=== PATIENT | male | born 1965 | race Caucasian/White ===

== ENCOUNTER 2024-12-28 05:45 | Emergency (ER) | payer BC, SELFPAY ==
[2024-12-28 05:48] VITALS: BP 178/100; PULSE 87; RESP 18; TEMP 36.8; O2SAT 98; BMI 33.7
[2024-12-28 05:52] VITALS: BP 178/100; PULSE 83; RESP 18; TEMP 36.8; O2SAT 98
--- NOTE | 2024-12-28 05:53 | RAD_ITS ---
PROCEDURE: KNEE 4 OR MORE VIEWS 12/28/2024 REASON FOR EXAM: PAIN, SWELLING TECHNIQUE: 4 view(s) of the right knee COMPARISON: None available FINDINGS: Appearance of a moderate joint effusion. No radiopaque foreign body identified. No periosteal reaction or osseous destruction seen. The joint spaces appear within limits. No fracture or dislocation. Ovoid calcific density at the medial joint line may represent sequela of previous MCL remote injury. Enthesophyte formation quadriceps side of the patella. RAD/Knee 4 or More Views IMPRESSION: Appearance of a moderate joint effusion. No radiopaque foreign body identified . No periosteal reaction or osseous destruction seen. Reading Location: [id number]
--- NOTE | 2024-12-28 05:55 | EX.ED.VISEXT ---
HPI History of Present Illness Chief Complaint: Bite Narrative Narrative: 59-year-old male past medical history of hypertension and gout, visiting from [place] as he is working up here in the area presents with pain and swelling of his right knee after being bit by something 2 days ago. He states it was Saturday morning, almost 48 hours ago, when he felt something bite the back of his right knee. He states he did not feel like a bee sting because that does not bother him. He denies any fevers or chills, but did state that the air conditioning in his hotel room was broken so he was somewhat sweaty all evening. No nausea or vomiting. There was a bruised area on the medial aspect of his posterior knee. He now states that his right knee has swollen up and he can flex and extend his knee, but it does feel stiff almost like gout. No change in color to his knee. ROS ROS ED ROS Narrative Review of systems positive for stiffness and swelling of right knee. Discoloration to right posterior medial knee. [place] like something bit him. No fevers or chills. No nausea or vomiting. No discoloration to the knee, or redness. [facility] Medical History Hypertension Gout Home Medications ?Medication ?Instructions ?Recorded ?Last Taken ?Type allopurinol 100 mg tablet 100 mg PO DAILY 12/28/24 Unknown History cephalexin 500 mg capsule 500 mg PO TID #21 caps 12/28/24 Unknown Rx lisinopril 20 mg tablet 20 mg PO DAILY 12/28/24 Unknown History Allergy/AdvReac Type Severity Reaction Status Date / Time No Known Allergies Allergy Verified 12/28/24 05:48 Social History Smoking Status: Current every day smoker tobacco type: cigarettes EXAM Physical Exam Narrative Exam Narrative: Afebrile. Vital signs noted. Nontoxic-appearing. Cardiovascular examination reveals regular rate and rhythm. Lungs are clear to auscultation bilaterally. The abdomen is soft, nontender, with positive bowel sounds. No guarding or rebound. Inspection of the right knee shows mild swelling diffusely throughout the right knee. There is an area of bruising on the right medial aspect posteriorly in the popliteal fossa. He appears neurovascularly intact distally. Flexion and extension of right knee intact. Ambulatory to room. Const Vital Signs: 12/28/24 05:48 12/28/24 05:52 12/28/24 06:00 Temperature 98.3 F 98.3 F Temperature Source Oral Oral Pulse Rate 87 83 79 Respiratory Rate 18 18 18 Blood Pressure 178/100 H 178/100 H 172/92 H Blood Pressure Mean 126 126 118 Pulse Ox 98 98 98 Oxygen Delivery Method Room Air Room Air Room Air MDM MDM MDM Narrative Medical decision making narrative: The differential diagnosis does include gout versus possible muscle or tendon tear versus localized inflammatory reaction. I have lower suspicion for septic arthritis as there is no erythema. I do not think he has a spontaneous hematoma as he does not take blood thinners. He did not see an actual insect bite him. He may have a ligamentous or tendon injury as well. Comprehensive workup was pursued. I will obtain initial x-rays to help rule out any fracture of the knee. I will obtain basic laboratory work including CBC, BMP, ESR and CRP. I reviewed his laboratory work and he has a normal white count of 9.0, hemoglobin 14.7, hematocrit 42.8, platelet count 181. Review of his BMP shows glucose elevated at 119 with a BUN of 14 and creatinine 1.04, sodium normal at 136 with potassium 4.4. Anion gap normal at 11. His ESR is normal at 10. I have low suspicion for septic arthritis as there is no erythema, no fever, no elevated white count, and ESR is normal. CRP is currently pending. On my individual interpretation of the x-ray of the right knee, there is a joint effusion, but no evidence of an acute fracture. I reviewed the radiology report which confirms my independent interpretation. Ultrasound of the right knee is currently pending. In discussion with the patient, he states that he has medication to treat gout and a joint effusion. He has colchicine, and indomethacin that he will start. However, he was somewhat insistent that there is infection and that something had bitten him in the back of the leg. While the whole knee does not appear erythematous or cellulitic, I wrote him a prescription for Keflex to take. I also referred him to orthopedics for follow-up. Return instructions to the emergency department were reviewed. At this point in time, will be signed out to the oncoming physician to check the ultrasound, and make final disposition which I anticipate can be discharged. History & Record Review Discussion w/independent historian: Patient Lab Data Attestation: I reviewed the patient's lab results. Labs: Laboratory Results - last 24 hr 12/28/24 05:59 WBC 9.0 RBC 4.52 L Hgb 14.7 Hct 42.8 MCV 94.7 H MCH 32.5 H MCHC 34.3 RDW Std Deviation 47.7 H RDW Coeff of Jazlyn 13.8 Plt Count 181 MPV 10.3 Immature Gran % (Auto) 0.400 Neut % (Auto) 55.8 Lymph % (Auto) 27.4 Armstrong % (Auto) 13.6 H Eos % (Auto) 1.9 Baso % (Auto) 0.9 Absolute Neuts (auto) 5.0 Absolute Lymphs (auto) 2.46 Nucleated RBC % 0 ESR 10 Sodium 136 Potassium 4.4 Chloride 101 Carbon Dioxide 23.7 Anion Gap 11 BUN 14 Creatinine 1.04 Estim Creat Clear Calc 119.62 Est GFR (MDRD) Non-Af 84 BUN/Creatinine Ratio 13.4 Glucose 119 H Calcium 8.9 Radiography Diagnostic Testing: Clinical Impression(s) from Imaging Studies Knee X-Ray 12/28/24 05:53 IMPRESSION: Appearance of a moderate joint effusion. No radiopaque foreign body identified. No periosteal reaction or osseous destruction seen. Reading Location: [facility] Discharge Plan Triage Chief Complaint: Bite ED Provider: Farhad Gilmore Dx/Rx/DC Orders Clinical Impression: Swelling of joint, knee, right, Effusion, right knee, Bug bite Instructions: ED Knee Effusion, ED Insect Bite Prescriptions: New cephalexin 500 mg capsule 500 mg PO TID Qty: 21 0RF No Action lisinopril 20 mg tablet 20 mg PO DAILY allopurinol 100 mg tablet 100 mg PO DAILY Primary Care Provider: MARYAM BECKER Referrals: Jian Engel MD [Med Staff - Active Staff] - As soon as possible Care Physician,No Primary [Non-Staff] - Activity Restrictions/Additional Instructions: Follow-up with your primary care provider as soon as possible. Return with fever, redness to your knee, new or worsening symptoms. Print Language: [place] Disposition Disposition: Home, Self Care
[2024-12-28 06:00] VITALS: BP 172/92; PULSE 79; RESP 18; O2SAT 98
[2024-12-28 06:12] LABS: Absolute Lymphocyte Count 2.46 X10^3/uL (0.83-4.51); Basophil# 0.08 X10^3/uL; Basophil% 0.9 % (0-1); Eosinophil# 0.17 X10^3/uL; Eosinophils% 1.9 % (0-5); Hematocrit 42.8 % (40-54); Hemoglobin 14.7 g/dL (13.0-16.5); Lymphocyte # 2.46 X10^3/ul (0.83-4.51); Lymphocyte % 27.4 % (19-41); Mean Corp Hgb Conc 34.3 g/dL (32-36); Mean Corpuscular Hgb 32.5 pg (27.0-32.0); Mean Corpuscular Volume 94.7 fL (80-94); Mean Platelet Vol. 10.3 fl (6.2-12.0); Monocyte# 1.22 X10^3/uL; Monocyte% 13.6 % (0-10); NRBC Flagged by Analyzer 0 % (0-5); Neutrophil # 5.01 X10^3/uL (2.7-7.7); Neutrophil % 55.8 % (47-70); Platelet Count 181 K/mm3 (150-450); RBC Distribution Width CV 13.8 % (11.6-14.6); RBC Distribution Width SD 47.7 fl (35.1-43.9); Red Blood Count 4.52 M/mm3 (4.6-6.2)
--- NOTE | 2024-12-28 06:17 | VDLE_ITS ---
Reason For Study Reason For Study: Swelling RLE RIGHT LEFT GSV is normal. CFV is compressible, spontaneous, phasic, competent, CFV is compressible, spontaneous, phasic, competent and demonstrates normal augmentation. and demonstrates normal augmentation. FV is compressible, spontaneous, phasic, competent and demonstrates normal augmentation. POP V is compressible, spontaneous, phasic, competent and demonstrates normal augmentation. T/P Trunk is compressible. PTV is compressible. RT PerV is compressible. Bilateral groin lymph nodes noted measuring 1.52cm x 0.91cm (right) and 1.0cm x 1.52cm (left). Procedure This is a venous duplex using B-mode, color flow and spectral Doppler. Exam performed portable in ED. A preliminary report was called and/or faxed to Dr. Demarco. VL/Venous Duplex US, Unilateral Interpretation Summary Deep veins of the right lower extremity are patent and compressible segmentally . There is no evidence of right lower extremity deep vein thrombosis. The right great saphenous vein appears patent a nd compressible segmentally. Bilateral prominent inguinal lymph nodes noted measuring 1.52cm x 0.91cm (right ) and 1.0cm x 1.52cm (left). Ordering Physician: Farhad Gilmore Performed By: Laura Conner RDCS, RVT
[2024-12-28 06:33] LABS: Erythrocyte Sedimentation Rate 10 mm/hr (0-20)
[2024-12-28 06:40] LABS: Anion Gap 11 (5-15); BUN 14 mg/dL (4-19); BUN/Creat Ratio 13.4 RATIO (10-20); Calcium,Total 8.9 mg/dL (7.6-11.0); Carbon Dioxide 23.7 mmol/L (21.0-32.0); Chloride 101 mmol/L (98-108); Creatinine, Serum 1.04 mg/dL (0.70-1.20); EST Glomerular Filtration Rate 84 (>60); Estimated Creatinine Clearance 119.62 ml/min (50-250); Glucose 119 mg/dL (70-99); Potassium 4.4 mmol/L (3.3-5.1); Sodium Level 136 mmol/L (133-145)
[2024-12-28 07:00] VITALS: BP 160/90; PULSE 75; RESP 18; TEMP 37.2; O2SAT 98
[2024-12-28 08:00] VITALS: BP 154/91; PULSE 76; RESP 16; O2SAT 100
[2024-12-28 09:12] VITALS: BP 157/89; PULSE 68; RESP 16; TEMP 36.6; O2SAT 98
[2024-12-28 10:05] LABS: Reflex Lactate? Y
[2024-12-29 04:07] LABS: CRP, High Sensitivity 14.75 mg/L (0.00-3.00)
== END 2024-12-28 09:18 | disposition home or self-care (01) ==
PROVIDERS: Emergency Provider Emergency Medicine; Visit Provider Emergency Medicine
DX: S81.851A Open bite, right lower leg, initial encounter (principal); I10 Essential (primary) hypertension; M79.89 Other specified soft tissue disorders; M25.461 Effusion, right knee; F17.210 Nicotine dependence, cigarettes, uncomplicated; Z79.899 Other long term (current) drug therapy; X58.XXXA Exposure to other specified factors, initial encounter
CPT/HCPCS: 73564; 80048; 83605; 85025; 85652; 86141; 93971; 99284; A4216